=== PATIENT | female | born 1970 | race African-American/Black ===

== ENCOUNTER 2020-04-23 11:14 | Inpatient (IN) | payer OTHER ==
--- NOTE | 2020-04-23 11:31 | BHS.RME ---
Substance Use & Tx History - Substance Use History Alcohol Substance amount: 64 ounces vodka Frequency of use: Daily Substance route: Oral Date of Last Use: 04/23/20 Physical/Psych/Mental Status - Behavior General Behavior: Increased activity (restlessness, agitation) Eye Contact: Normal - Cooperativeness Cooperativeness: Cooperative - Thinking Thought Processes: Tight, Logical, Goal Directed - Physical Health Problems Is patient presently having any pain?: No Does patient presently have any injuries (include location): No Does patient currently have a fever: No Is patient : No CIWA Nausea/Vomitin Muscle Tremors: 4-Moderate,w/Arms Extend Anxiety: 2 Agitation: 2 Paroxysmal Sweats: 1-Minimal Palms Moist Orientation: 0-Oriented Tacttile Disturbances: 2-Mild Itch/Numbness/Burn Auditory Disturbances: 0-None Visual Disturbances: 1-Very Mild Sensitivity Headache: 0-None Present CIWA-Ar Total Score: 14
--- NOTE | 2020-04-23 11:41 | HP ---
CIWA Score Nausea/Vomitin Muscle Tremors: 4-Moderate,w/Arms Extend Anxiety: 2 Agitation: 2 Paroxysmal Sweats: 1-Minimal Palms Moist Orientation: 0-Oriented Tacttile Disturbances: 2-Mild Itch/Numbness/Burn Auditory Disturbances: 0-None Visual Disturbances: 1-Very Mild Sensitivity Headache: 0-None Present CIWA-Ar Total Score: 14 - Admission Criteria OASAS Guidelines: Admission for Medically Managed Detox: Requires at least one of the followin. CIWA greater than 12 2. Seizures within the past 24 hours 3. Delirium tremens within the past 24 hours 4. Hallucinations within the past 24 hours 5. Acute intervention needed for co occurring medical disorder 6. Acute intervention needed for co occurring psychiatric disorder 7. Severe withdrawal that cannot be handled at a lower level of care (continued vomiting, continued diarrhea, abnormal vital signs) requiring intravenous medication and/or fluids 8. Admitting History and Physical - Admission History Source: Patient Limitations to Obtaining History: No Limitations - Past Medical History Pulmonary: Yes: Asthma - Past Surgical History Past Surgical History: Yes: None - Smoking History Smoking history: Current every day smoker Have you smoked in the past 12 months: Yes Aproximately how many cigarettes per day: 20 - Alcohol/Substance Use Hx Alcohol Use: Yes Number of Drinks Daily: 20 History of Substance Use: reports: Cocaine - Social History Usual Living Arrangement: Yes: Other Do you think of yourself as: Straight/Heterosexual ADL: Independent Occupation: unemployed History of Recent Travel: No Admission ROS S - HPI Exam Limitations: No Limitations - Ebola screening Have you traveled outside of the country in the last 21 days: No Have you had contact with anyone from an Ebola affected area: No Have you been sick,other than usual withdrawal symptoms: No Do you have a fever: No - Review of Systems Constitutional: Chills, Diaphoresis EENT: reports: No Symptoms Reported Respiratory: reports: No Symptoms reported Cardiac: reports: No Symptoms Reported GI: reports: No Symptoms Reported : reports: No Symptoms Reported Musculoskeletal: reports: No Symptoms Reported Integumentary: reports: No Symptoms Reported Neuro: reports: No Symptoms reported Endocrine: reports: No Symptoms Reported Hematology: reports: No Symptoms Reported Psychiatric: reports: Judgement Intact, Mood/Affect Appropiate, Orientated x3, Agitated, Anxious Other Systems: Reviewed and Negative Patient History - Patient Medical History Hx Anemia: No Hx Asthma: Yes Hx Chronic Obstructive Pulmonary Disease (COPD): No Hx Cancer: No Hx Cardiac Disorders: No Hx Congestive Heart Failure: No Hx Hypertension: No Hx Hypercholesterolemia: No Hx Pacemaker: No HX Cerebrovascular Accident: No Hx Seizures: No Hx Dementia: No Hx Diabetes: No Hx Gastrointestinal Disorders: No Hx Liver Disease: No Hx Genitourinary Disorders: No Hx Sexually Transmitted Disorders: No Hx Renal Disease (ESRD): No Hx Thyroid Disease: No Hx Human Immunodeficiency Virus (HIV): No Hx Hepatitis C: No Hx Depression: No Hx Suicide Attempt: No Hx Bipolar Disorder: No Hx Schizophrenia: No - Patient Surgical History Past Surgical History: No - PPD History Previous Implant?: Yes Documented Results: Negative w/o proof Implanted On Prior [facility] Admission?: No PPD to be Administered?: Yes - Smoking Cessation Smoking history: Current every day smoker Have you smoked in the past 12 months: Yes Aproximately how many cigarettes per day: 20 Hx Chewing Tobacco Use: No Initiated information on smoking cessation: Yes 'Breaking Loose' booklet given: 04/23/20 - Substances abused Alcohol Substance route: Oral Frequency: Daily Amount used: 3 pints vodka + beers Age of first use: 11 Date of last use: 04/23/20 (3am beers) Cocaine Substance route: Inhalation Frequency: Daily Amount used: 1 gram Age of first use: 11 Date of last use: 04/22/20 Admission Physical Exam [facility] - Physical General Appearance: Yes: Mild Distress, Thin, Tremorous, Irritable, Anxious HEENTM: Yes: EOMI, Hearing grossly Normal, Normal ENT Inspection, Normocephalic, Normal Voice, PARVEEN, Pharynx Normal, Tm's normal Respiratory: Yes: Chest Non-Tender, Lungs Clear, Normal Breath Sounds, No Respiratory Distress, No Accessory Muscle Use Neck: Yes: No masses,lesions,Nodules, Supple, Trachea in good position Breast: Yes: Within Normal Limits Cardiology: Yes: Regular Rhythm, Regular Rate, S1, S2 Abdominal: Yes: Normal Bowel Sounds, Non Tender, Flat, Soft Genitourinary: Yes: Within Normal Limits Back: Yes: Normal Inspection Musculoskeletal: Yes: full range of Motion, Gait Steady, Pelvis Stable Extremities: Yes: Normal Capillary Refill, Normal Inspection, Normal Range of Motion, Non-Tender 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
--- NOTE | 2020-04-23 13:59 | HP ---
CIWA Score Nausea/Vomitin-No Nausea/No Vomiting Muscle Tremors: 3 Anxiety: 6 Agitation: 3 Paroxysmal Sweats: 1-Minimal Palms Moist Orientation: 0-Oriented Tacttile Disturbances: 2-Mild Itch/Numbness/Burn Auditory Disturbances: 0-None Visual Disturbances: 1-Very Mild Sensitivity Headache: 0-None Present CIWA-Ar Total Score: 16 - Admission Criteria OASAS Guidelines: Admission for Medically Managed Detox: Requires at least one of the followin. CIWA greater than 12 2. Seizures within the past 24 hours 3. Delirium tremens within the past 24 hours 4. Hallucinations within the past 24 hours 5. Acute intervention needed for co occurring medical disorder 6. Acute intervention needed for co occurring psychiatric disorder 7. Severe withdrawal that cannot be handled at a lower level of care (continued vomiting, continued diarrhea, abnormal vital signs) requiring intravenous medication and/or fluids 8. Admitting History and Physical - Admission Chief Complaint: " Im here to stop drinking." History of Present Illness: Patient is a 49 y/o F who presents to [facility] for alcohol detox. Patient endorses she consumes 8 glasses of vodka/whiskey daily. Last drink was 5:30 am today. Age of first use 16. Patient states she does require an eye shoe folder and that she has blacked out multiple times in the past from drinking. PMH: Depression (Fluoxetine, Trazadone), HTN, Hearing loss (acoustic schwannoma), osteoarthritis b/l knees Social Hx- Unemployed. Remote history of crack use- January of this year. SurgHx- Gastric Sleeve ([facility]) FH- Father Alcoholism, Leukemia. Mother Healthy. 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 Unclear which type.) Hepatobiliary: No: Cirrhosis, Cholelithiasis, Cholecystitis, Choledocholithiasis, Hepatitis A, Hepatitis B, Hepatitis C, Other Renal/: No: Renal Failure, Renal Inusuff, BPH, Cancer, Hematuria, Hemodialysis, Neurogenic Bladder, Renal Calculi, UTI, Other Reproductive: No: Ectopic , Endometriosis, Fibroids, PID, Polycystic Ovary Syndrome, Postmenopausal, Other Heme/Onc: No: Anemia, B12 Deficiency, Bleeding Disorder, Cancer, Current Chemotherapy, Current Radiation Therapy, Hemochromatosis, Hypercoaguable State, Myeloproliferative Synd, Sickle Cell Disease, Sickle Cell Trait, Thrombocytopenia, Other Infectious Disease: No: AIDS, C-Diff, Herpes Zoster, HIV, MRSA, STD's, Tuberculosis, VREF, Other Psych: Yes: Depression Musculoskeletal: Yes: Osteoarthritis Rheumatology: No: Fibromyalgia, Gout, Lupus, Rheumatoid Arthritis, Sarcoidosis, Vasculitis, Other ENT: No: Allergic Rhinitis, Sinusitis, Other Endocrine: No: Smith's Disease, Manjeet's Disease, Diabetes Insipidus, Diabetes Mellitus, Hyperparathyroidism, Hyperthyroidism, Hypothyroidism, Osteopenia, SIADH, Other - Past Surgical History Past Surgical History: Yes: Bypass, Cataract Removal - Smoking History Have you smoked in the past 12 months: No - Alcohol/Substance Use Hx Alcohol Use: Yes Admission [facility] Allergies/Adverse Reactions: Allergies Allergy/AdvReac Type Severity Reaction Status Date / Time No Known Allergies Allergy Verified 04/23/20 14:07 Exam Limitations: No Limitations - Ebola screening Have you traveled outside of the country in the last 21 days: No Have you had contact with anyone from an Ebola affected area: No Have you been sick,other than usual withdrawal symptoms: No Do you have a fever: No - Review of Systems Constitutional: No Symptoms Reported EENT: reports: Cataracts, Hearing Loss. denies: Blurred Vision, Double Vision, Eye Pain, Ear Pain Respiratory: denies: Cough, Orthopnea, Shortness of Breath, SOB with Exertion, Wheezing, Productive cough, Hemoptysis Cardiac: denies: Chest Pain, Lightheadedness, Palpitations, Chest Tightness GI: denies: Blood Streaked Bowels, Constipated, Diarrhea, Poor Appetite, Rectal Bleeding, Vomiting : denies: Burning, Dysuria, Discharge, Flank Pain, Hematuria Musculoskeletal: denies: Back Pain, Gout, Joint Pain, Muscle Pain, Muscle Weakness Integumentary: denies: Bruising, Change in Color, Change in Hair/Nails, Dryness, Erythema, Flushing Neuro: denies: Headache, Numbness, Paresthesia, Seizure, Tingling, Tremors, Weakness Endocrine: denies: Excessive Sweating, Flushing, Intolerance to Cold, Intolerance to Heat, Increased Hunger Hematology: denies: Anemia, Blood Clots, Easy Bleeding, Easy Bruising Psychiatric: reports: Orientated x3 Patient History - Smoking Cessation Smoking history: Former smoker Have you smoked in the past 12 months: No Initiated information on smoking cessation: No Admission Physical Exam [facility] - Physical General Appearance: Yes: Within Normal Limits, Nourished, Appropriately Dressed HEENTM: Yes: EOMI, Normal ENT Inspection, Normocephalic, Normal Voice Respiratory: Yes: Chest Non-Tender, Lungs Clear, Normal Breath Sounds, No Respiratory Distress Cardiology: Yes: Regular Rhythm, Regular Rate, S1, S2 Abdominal: Yes: Other (Obese). 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, Fully Oriented, Alert, Motor Strength 5/5 Integumentary: Yes: Normal Color, Dry, Warm Lymphatic: Yes: Within Normal Limits - Diagnostic (1) Alcohol abuse Current Visit: Yes Status: Acute (2) Hypertension Current Visit: Yes Status: Acute (3) Depression Current Visit: Yes Status: Chronic (4) Atrial fibrillation Current Visit: Yes Status: Chronic Breathalyzer - Breathalyzer Breathalyzer: 0 Urine Drug Screen - Test Device Lot number: [id number] Expiration date: 05/31/21 - Control Is test valid?: Yes - Results Drug screen NEGATIVE: Yes Inpatient Rehab Admission - Rehab Decision to Admit Inpatient rehab admission?: No
[2020-04-23] MEDS ORDERED: NICOTINE POLACRILEX 2 MG GUM BUC PRN (14:07)
[2020-04-23] MEDS ORDERED: BISMUTH SUBSALICYLATE 262 MG/15 ML BTL PO PRN (14:07)
[2020-04-23] MEDS ORDERED: MAGNESIUM HYDROX 2400MG/30ML ORAL SUSPENSION 30 ML CUP PO PRN (14:07)
[2020-04-23] MEDS ORDERED: MAGNESIUM CITRATE 300 ML BOTTLE PO PRN (14:07)
[2020-04-23] MEDS ORDERED: ACETAMINOPHEN 325 MG TABLET (FP) PO PRN ×2 (14:07)
[2020-04-23] MEDS ORDERED: ONDANSETRON *ODT* 4 MG TABLET SL ONE (14:07)
[2020-04-23] MEDS ORDERED: MENTHOL/PHENOL 1 EACH UD MM PRN (14:07)
[2020-04-23] MEDS ORDERED: PRENATAL VITAMINS W/ FOLIC ACID TABLET (FP) PO SCH (14:15)
[2020-04-23 14:42] VITALS: BMI 46.3
[2020-04-23] MEDS: chlordiazePOXIDE HCL 25 MG CAPSULE PO SCH ×2 (16:53→22:17)
[2020-04-23] MEDS: NICOTINE 7 MG/24 HOURS TOPICAL PATCH TD SCH (16:53)
[2020-04-23 17:09] LABS: HEMATOCRIT 39.4 % (32.4-45.2); MCH 29.4 pg (25.7-33.7); MCHC 32.9 g/dl (32.0-36.0); MEAN CELL VOLUME 89.4 fl (80-96); MEAN PLT VOLUME 10.9 fl (7.5-11.1); PLATELET COUNT 144 K/MM3 (134-434); RBC 4.41 M/mm3 (3.60-5.2); RDW 16.3 % (11.6-15.6); WHITE BLOOD COUNT 6.4 K/mm3 (4.0-10.0)
[2020-04-23] MEDS: IBUPROFEN 400 MG TABLET (FP) PO PRN (17:40)
[2020-04-23 17:42] LABS: ALBUMIN 3.6 g/dl (3.4-5.0); BILIRUBIN,TOTAL 0.9 mg/dL (0.2-1); CALCIUM 9.2 mg/dL (8.5-10.1); CREATININE 0.9 mg/dL (0.55-1.3); POTASSIUM 3.9 mmol/L (3.5-5.1); TOT PROT 7.3 g/dl (6.4-8.2)
[2020-04-23] MEDS ORDERED: hydrOXYzine PAMOATE 25 MG CAPSULE (FP) PO SCH (18:00)
[2020-04-23] MEDS: THIAMINE HCL 100 MG TABLET (FP) PO SCH (22:16)
[2020-04-23] MEDS: METOPROLOL TARTRATE 25 MG TABLET (FP) PO SCH (22:17)
[2020-04-23] MEDS: MELATONIN 5 MG TABLETS PO SCH (22:18)
[2020-04-24] MEDS: METHOCARBAMOL 500 MG TABLET PO PRN ×2 (05:59→13:35)
[2020-04-24] MEDS: chlordiazePOXIDE HCL 25 MG CAPSULE PO SCH ×4 (05:59→22:14)
[2020-04-24] MEDS: IBUPROFEN 400 MG TABLET (FP) PO PRN (06:00)
[2020-04-24] MEDS: NICOTINE 7 MG/24 HOURS TOPICAL PATCH TD SCH (10:43)
[2020-04-24] MEDS: METOPROLOL TARTRATE 25 MG TABLET (FP) PO SCH ×2 (10:43→22:14)
[2020-04-24] MEDS: MULTIVITAMINS (DAILY MVI) TABLET (FP) PO SCH (10:44)
[2020-04-24] MEDS ORDERED: PNEUMOC 13-VAL CONJ-DIP CRM/PF 0.5 ML DISP.SYRIN IM ONE (12:00)
[2020-04-24] MEDS ORDERED: PNEUMOCOCCAL 23 VACCINE 0.5 ML VIAL IM ONE (12:00)
[2020-04-24] MEDS ORDERED: ONDANSETRON *ODT* 4 MG TABLET SL PRN (12:42)
[2020-04-24] MEDS: chlordiazePOXIDE HCL 25 MG CAPSULE PO PRN (13:35)
--- NOTE | 2020-04-24 15:16 | PN ---
S Progress Note Note: Psychiatry Attending's note : Bedside visit for psychiatric interview. Patient is found asleep. No distress noted. Examination deferred until patient awake.
--- NOTE | 2020-04-24 16:31 | PN ---
[facility] CIWA - CIWA Score Nausea/Vomitin (and Diarrhea.) Muscle Tremors: None Anxiety: 3 Agitation: 2 Paroxysmal Sweats: No Perspiration Orientation: 0-Oriented Tacttile Disturbances: 0-None Auditory Disturbances: 1-Very Mild Visual Disturbances: 2-Mild Sensitivity Headache: 0-None Present CIWA-Ar Total Score: 11 [facility] Progress Note (SOAP) Subjective: Nausea, Diarrhea, Anxious, Fatigue. Objective: Patient A & O X 3, Observed Ambulating on Detox Unit Unassisted. In No Acute Distress. 04/24/20 16:28 Vital Signs Temperature 96.9 F L 04/24/20 14:12 Pulse Rate 89 04/24/20 14:12 Respiratory Rate 18 04/24/20 14:12 Blood Pressure 134/68 04/24/20 14:12 O2 Sat by Pulse Oximetry (%) 96 04/24/20 14:12 Laboratory Tests 04/23/20 04/23/20 04/23/20 14:15 14:15 14:15 WBC 6.4 RBC 4.41 Hgb 13.0 Hct 39.4 MCV 89.4 MCH 29.4 MCHC 32.9 RDW 16.3 H Plt Count 144 MPV 10.9 Sodium 138 Potassium 3.9 Chloride 98 Carbon Dioxide 33 H Anion Gap 8 BUN 9.0 Creatinine 0.9 Est GFR (CKD-EPI)AfAm 85.80 Est GFR (CKD-EPI)NonAf 74.03 Random Glucose 106 Hemoglobin A1c % Calcium 9.2 Total Bilirubin 0.9 AST 61 H ALT 53 Alkaline Phosphatase 121 H Total Protein 7.3 Albumin 3.6 Syphilis Serology Non-reactive HIV Ag/Ab Combo Qual 04/23/20 04/24/20 14:15 06:05 WBC RBC Hgb Hct MCV MCH MCHC RDW Plt Count MPV Sodium Potassium Chloride Carbon Dioxide Anion Gap BUN Creatinine Est GFR (CKD-EPI)AfAm Est GFR (CKD-EPI)NonAf Random Glucose Hemoglobin A1c % 4.8 Calcium Total Bilirubin AST ALT Alkaline Phosphatase Total Protein Albumin Syphilis Serology HIV Ag/Ab Combo Qual Negative Lab Results noted. Assessment: 04/24/20 16:29 WITHDRAWAL SYMPTOMS. ELEVATED AST LEVEL. Plan: Continue Detox. Increase Daily Oral Water Intake. PRN Zofran SL for nausea. PRN Pepto-Bismol for Diarrhea.
--- NOTE | 2020-04-24 18:06 | PN ---
S Progress Note Note: Psychiatry Attending's note : Three visits at bedside. Different times. Patient asleep. Nursing staff made aware. Liaison-Psychiatry will follow.
[2020-04-24] MEDS: THIAMINE HCL 100 MG TABLET (FP) PO SCH (22:14)
[2020-04-24] MEDS: MELATONIN 5 MG TABLETS PO SCH (22:14)
[2020-04-25] MEDS: chlordiazePOXIDE HCL 25 MG CAPSULE PO SCH ×4 (06:23→22:16)
[2020-04-25] MEDS: METOPROLOL TARTRATE 25 MG TABLET (FP) PO SCH ×2 (10:23→22:15)
[2020-04-25] MEDS: MULTIVITAMINS (DAILY MVI) TABLET (FP) PO SCH (10:23)
[2020-04-25] MEDS: NICOTINE 7 MG/24 HOURS TOPICAL PATCH TD SCH (10:24)
[2020-04-25] MEDS: METHOCARBAMOL 500 MG TABLET PO PRN ×2 (10:27→22:16)
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
[2020-04-25] MEDS: FLUoxetine HCL 20 MG CAPSULE PO SCH (12:28)
--- NOTE | 2020-04-25 13:45 | PN ---
S CIWA - CIWA Score Nausea/Vomitin-Mild Nausea/No Vomiting Muscle Tremors: 2 Anxiety: 1-Mildly Anxious Agitation: 1-Slight > Activity Paroxysmal Sweats: 1-Minimal Palms Moist Orientation: 0-Oriented Tacttile Disturbances: 0-None Auditory Disturbances: 0-None Visual Disturbances: 2-Mild Sensitivity Headache: 1-Very Mild CIWA-Ar Total Score: 9 [facility] Progress Note (SOAP) Subjective: 49 years old female admitted on 04/23/20 for alcohol withdrawal sx management treating with librium detox regiment ate breakfast and lunch in room ambulating with cane slow steady social with peers in day room discussing aftercare with staff ms pereira prefers to go to [facility] for alcohol recovery Objective: 04/25/20 13:51 Vital Signs - 24 hr 04/24/20 04/24/20 04/24/20 14:12 17:51 21:00 Temperature 96.9 F L 98.0 F 97.3 F L Pulse Rate 89 91 H 80 Respiratory 18 18 18 Rate Blood Pressure 134/68 101/67 105/64 O2 Sat by Pulse 96 95 Oximetry (%) 04/25/20 04/25/20 04/25/20 07:02 08:37 12:18 Temperature 96.9 F L 96.9 F L 96.9 F L Pulse Rate 81 91 H 96 H Respiratory 20 18 18 Rate Blood Pressure 105/69 105/73 116/70 O2 Sat by Pulse 97 97 Oximetry (%) Laboratory Tests 04/23/20 04/23/20 04/23/20 14:15 14:15 14:15 WBC 6.4 RBC 4.41 Hgb 13.0 Hct 39.4 MCV 89.4 MCH 29.4 MCHC 32.9 RDW 16.3 H Plt Count 144 MPV 10.9 Sodium 138 Potassium 3.9 Chloride 98 Carbon Dioxide 33 H Anion Gap 8 BUN 9.0 Creatinine 0.9 Est GFR (CKD-EPI)AfAm 85.80 Est GFR (CKD-EPI)NonAf 74.03 Random Glucose 106 Hemoglobin A1c % Calcium 9.2 Total Bilirubin 0.9 AST 61 H ALT 53 Alkaline Phosphatase 121 H Total Protein 7.3 Albumin 3.6 Syphilis Serology Non-reactive HIV Ag/Ab Combo Qual 04/23/20 04/24/20 14:15 06:05 WBC RBC Hgb Hct MCV MCH MCHC RDW Plt Count MPV Sodium Potassium Chloride Carbon Dioxide Anion Gap BUN Creatinine Est GFR (CKD-EPI)AfAm Est GFR (CKD-EPI)NonAf Random Glucose Hemoglobin A1c % 4.8 Calcium Total Bilirubin AST ALT Alkaline Phosphatase Total Protein Albumin Syphilis Serology HIV Ag/Ab Combo Qual Negative lab noted Assessment: 04/25/20 13:52 alcohol withdrawal Plan: librium regiment
--- NOTE | 2020-04-25 17:15 | EKG ---
Test Reason : Blood Pressure : / mmHG Vent. Rate : 074 BPM Atrial Rate : 074 BPM P-R Int : 160 ms QRS Dur : 096 ms QT Int : 460 ms P-R-T Axes : 046 024 023 degrees QTc Int : 510 ms NORMAL SINUS RHYTHM POSSIBLE LEFT ATRIAL ENLARGEMENT NONSPECIFIC ST ABNORMALITY PROLONGED QT ABNORMAL ECG NO PREVIOUS ECGS AVAILABLE Confirmed by MD Rodriguez Edward ([id number]) on 04/25/2020 5:14:25 PM Referred By: Confirmed By:Humberto Rodriguez MD
[2020-04-25] MEDS: chlordiazePOXIDE HCL 25 MG CAPSULE PO PRN (18:02)
[2020-04-25] MEDS: MELATONIN 5 MG TABLETS PO SCH (22:15)
[2020-04-25] MEDS: THIAMINE HCL 100 MG TABLET (FP) PO SCH (22:15)
[2020-04-25] MEDS: traZODone HCL 50 MG TABLET (FP) PO SCH (22:16)
[2020-04-26] MEDS ORDERED: chlordiazePOXIDE HCL 10 MG CAPSULE PO PRN
[2020-04-26] MEDS: chlordiazePOXIDE HCL 10 MG CAPSULE PO SCH ×4 (06:02→22:10)
--- NOTE | 2020-04-26 09:01 | PN ---
S CIWA - CIWA Score Nausea/Vomitin-No Nausea/No Vomiting Muscle Tremors: 2 Anxiety: 3 Agitation: 1-Slight > Activity Paroxysmal Sweats: No Perspiration Orientation: 0-Oriented Tacttile Disturbances: 0-None Auditory Disturbances: 0-None Visual Disturbances: 1-Very Mild Sensitivity Headache: 0-None Present CIWA-Ar Total Score: 7 S Progress Note (SOAP) Subjective: 49 years old grossly obese female admitted on 04/23/20 for alcohol withdrawal sx management treating with librium detox regiment ate breakfast tolerated food well ambulating with four points cane slow steady from bed to bathroom alert oriented x 3 speech clearly loose stool x 1 after breakfast imodium 4 mg po x 1 Objective: 04/26/20 09:00 Vital Signs - 24 hr 04/25/20 04/25/20 04/25/20 12:18 16:58 20:49 Temperature 96.9 F L 97.5 F L 96.8 F L Pulse Rate 96 H 79 79 Respiratory 18 18 16 Rate Blood Pressure 116/70 125/78 O2 Sat by Pulse 97 96 Oximetry (%) 04/26/20 06:35 Temperature 97.1 F L Pulse Rate 77 Respiratory 18 Rate Blood Pressure 103/65 O2 Sat by Pulse 96 Oximetry (%) Laboratory Tests 04/23/20 04/23/20 04/23/20 14:15 14:15 14:15 WBC 6.4 RBC 4.41 Hgb 13.0 Hct 39.4 MCV 89.4 MCH 29.4 MCHC 32.9 RDW 16.3 H Plt Count 144 MPV 10.9 Sodium 138 Potassium 3.9 Chloride 98 Carbon Dioxide 33 H Anion Gap 8 BUN 9.0 Creatinine 0.9 Est GFR (CKD-EPI)AfAm 85.80 Est GFR (CKD-EPI)NonAf 74.03 Random Glucose 106 Hemoglobin A1c % Calcium 9.2 Total Bilirubin 0.9 AST 61 H ALT 53 Alkaline Phosphatase 121 H Total Protein 7.3 Albumin 3.6 Syphilis Serology Non-reactive HIV Ag/Ab Combo Qual 04/23/20 04/24/20 14:15 06:05 WBC RBC Hgb Hct MCV MCH MCHC RDW Plt Count MPV Sodium Potassium Chloride Carbon Dioxide Anion Gap BUN Creatinine Est GFR (CKD-EPI)AfAm Est GFR (CKD-EPI)NonAf Random Glucose Hemoglobin A1c % 4.8 Calcium Total Bilirubin AST ALT Alkaline Phosphatase Total Protein Albumin Syphilis Serology HIV Ag/Ab Combo Qual Negative lab noted 04/26/20 09:01 covid pending Assessment: 04/26/20 09:01 alcohol withdrawal Plan: librium regiment seen by psychiatrist resume prozac and trazodone
[2020-04-26] MEDS ORDERED: LOPERAMIDE HCL 2 MG CAPSULE PO ONE (09:02)
[2020-04-26] MEDS: MULTIVITAMINS (DAILY MVI) TABLET (FP) PO SCH (10:21)
[2020-04-26] MEDS: METOPROLOL TARTRATE 25 MG TABLET (FP) PO SCH ×2 (10:21→22:11)
[2020-04-26] MEDS: FLUoxetine HCL 20 MG CAPSULE PO SCH (10:21)
[2020-04-26] MEDS: NICOTINE 7 MG/24 HOURS TOPICAL PATCH TD SCH (10:22)
[2020-04-26] MEDS: MAG HYDROX/AL HYDROX/SIMETH 30 ML UNIT-DOSE CUP PO PRN ×2 (11:32→17:25)
[2020-04-26] MEDS: traZODone HCL 50 MG TABLET (FP) PO SCH (22:10)
[2020-04-26] MEDS: THIAMINE HCL 100 MG TABLET (FP) PO SCH (22:10)
[2020-04-26] MEDS: MELATONIN 5 MG TABLETS PO SCH (22:11)
[2020-04-27] MEDS: chlordiazePOXIDE HCL 10 MG CAPSULE PO SCH ×2 (06:09→17:33)
--- NOTE | 2020-04-27 09:47 | PN ---
S CIWA - CIWA Score Nausea/Vomitin-No Nausea/No Vomiting Muscle Tremors: 1-None Visible, but [place] Anxiety: 1-Mildly Anxious Agitation: 0-Normal Activity Paroxysmal Sweats: 1-Minimal Palms Moist Orientation: 0-Oriented Tacttile Disturbances: 0-None Auditory Disturbances: 0-None Visual Disturbances: 1-Very Mild Sensitivity Headache: 0-None Present CIWA-Ar Total Score: 4 BHS Progress Note (SOAP) Subjective: 49 years old female admitted on 04/23/20 for alcohol withdrawal sx management treating with librium detox regiment ambulating with cane slow steady from bed to bathroom feeling better today discussing aftercare with staff encourage [facility] [place] [facility] Objective: 04/27/20 09:47 Vital Signs - 24 hr 04/26/20 04/26/20 04/26/20 12:43 16:40 20:54 Temperature 96.6 F L 96.9 F L 97.3 F L Pulse Rate 89 73 72 Respiratory 20 18 16 Rate Blood Pressure 125/84 124/84 113/81 O2 Sat by Pulse 97 97 97 Oximetry (%) 04/27/20 04/27/20 06:46 08:35 Temperature 97.7 F 98.4 F Pulse Rate 69 65 Respiratory 20 18 Rate Blood Pressure 123/83 126/82 O2 Sat by Pulse 99 99 Oximetry (%) Laboratory Tests 04/23/20 04/23/20 04/23/20 13:26 14:15 14:15 WBC 6.4 RBC 4.41 Hgb 13.0 Hct 39.4 MCV 89.4 MCH 29.4 MCHC 32.9 RDW 16.3 H Plt Count 144 MPV 10.9 Sodium 138 Potassium 3.9 Chloride 98 Carbon Dioxide 33 H Anion Gap 8 BUN 9.0 Creatinine 0.9 Est GFR (CKD-EPI)AfAm 85.80 Est GFR (CKD-EPI)NonAf 74.03 Random Glucose 106 Hemoglobin A1c % Calcium 9.2 Total Bilirubin 0.9 AST 61 H ALT 53 Alkaline Phosphatase 121 H Total Protein 7.3 Albumin 3.6 POC Urine HCG, Qual Negative Syphilis Serology COVID-19 (JM) HIV Ag/Ab Combo Qual 04/23/20 04/23/20 04/23/20 14:15 14:15 15:20 WBC RBC Hgb Hct MCV MCH MCHC RDW Plt Count MPV Sodium Potassium Chloride Carbon Dioxide Anion Gap BUN Creatinine Est GFR (CKD-EPI)AfAm Est GFR (CKD-EPI)NonAf Random Glucose Hemoglobin A1c % 4.8 Calcium Total Bilirubin AST ALT Alkaline Phosphatase Total Protein Albumin POC Urine HCG, Qual Syphilis Serology Non-reactive COVID-19 (JM) Not detected HIV Ag/Ab Combo Qual 04/24/20 06:05 WBC RBC Hgb Hct MCV MCH MCHC RDW Plt Count MPV Sodium Potassium Chloride Carbon Dioxide Anion Gap BUN Creatinine Est GFR (CKD-EPI)AfAm Est GFR (CKD-EPI)NonAf Random Glucose Hemoglobin A1c % Calcium Total Bilirubin AST ALT Alkaline Phosphatase Total Protein Albumin POC Urine HCG, Qual Syphilis Serology COVID-19 (JM) HIV Ag/Ab Combo Qual Negative encourage weight loss Assessment: 04/27/20 09:48 alcohol withdrawal Plan: librium regiment
[2020-04-27] MEDS: METOPROLOL TARTRATE 25 MG TABLET (FP) PO SCH ×2 (10:06→22:49)
[2020-04-27] MEDS: MULTIVITAMINS (DAILY MVI) TABLET (FP) PO SCH (10:06)
[2020-04-27] MEDS: FLUoxetine HCL 20 MG CAPSULE PO SCH (10:06)
[2020-04-27] MEDS: NICOTINE 7 MG/24 HOURS TOPICAL PATCH TD SCH (10:07)
[2020-04-27] MEDS: MAG HYDROX/AL HYDROX/SIMETH 30 ML UNIT-DOSE CUP PO PRN (10:08)
[2020-04-27 21:50] VITALS: TEMP 97.1
[2020-04-27] MEDS: traZODone HCL 50 MG TABLET (FP) PO SCH (22:46)
[2020-04-27] MEDS: THIAMINE HCL 100 MG TABLET (FP) PO SCH (22:46)
[2020-04-27] MEDS: MELATONIN 5 MG TABLETS PO SCH (22:51)
[2020-04-28] MEDS ORDERED: chlordiazePOXIDE HCL 10 MG CAPSULE PO ONE (05:00)
[2020-04-28 09:09] VITALS: BP 128/88; PULSE 71
[2020-04-28] MEDS: FLUoxetine HCL 20 MG CAPSULE PO SCH (10:25)
[2020-04-28] MEDS: MULTIVITAMINS (DAILY MVI) TABLET (FP) PO SCH (10:25)
[2020-04-28] MEDS: METOPROLOL TARTRATE 25 MG TABLET (FP) PO SCH (10:25)
[2020-04-28] MEDS: NICOTINE 7 MG/24 HOURS TOPICAL PATCH TD SCH (10:26)
--- NOTE | 2020-04-28 11:12 | DS ---
[facility] Detox Discharge Summary Admission Date: 04/23/20 Discharge Date: 04/28/20 - History Present History: Alcohol Dependence Additional Comments: 49 years old female admitted on 04/23/20 for alcohol withdrawal sx management treated with librium detox regiment seen by psychiatrist cole dwyer ms kelli has completed the librium regiment and is tolerated well alert oriented x 3 speech clearly coherently ambulating with cane slow steady gaits respiratory clear lung sounds bilaterally on auscultation abdomen soft round obese no rebound tenderness skin warm and dry Pertinent Past History: time for discharge 40 minutes transferred order sent from detox to rehab - Physical Exam Results Vital Signs: Vital Signs Temperature 97.1 F L 04/28/20 08:51 Pulse Rate 71 04/28/20 08:51 Respiratory Rate 18 04/28/20 08:51 Blood Pressure 128/88 04/28/20 08:51 O2 Sat by Pulse Oximetry (%) 96 04/28/20 05:58 Pertinent Admission Physical Exam Findings: alcohol withdrawal Laboratory Tests 04/23/20 04/23/20 04/23/20 13:26 14:15 14:15 WBC 6.4 RBC 4.41 Hgb 13.0 Hct 39.4 MCV 89.4 MCH 29.4 MCHC 32.9 RDW 16.3 H Plt Count 144 MPV 10.9 Sodium 138 Potassium 3.9 Chloride 98 Carbon Dioxide 33 H Anion Gap 8 BUN 9.0 Creatinine 0.9 Est GFR (CKD-EPI)AfAm 85.80 Est GFR (CKD-EPI)NonAf 74.03 Random Glucose 106 Hemoglobin A1c % Calcium 9.2 Total Bilirubin 0.9 AST 61 H ALT 53 Alkaline Phosphatase 121 H Total Protein 7.3 Albumin 3.6 POC Urine HCG, Qual Negative Syphilis Serology COVID-19 (JM) HIV Ag/Ab Combo Qual 04/23/20 04/23/20 04/23/20 14:15 14:15 15:20 WBC RBC Hgb Hct MCV MCH MCHC RDW Plt Count MPV Sodium Potassium Chloride Carbon Dioxide Anion Gap BUN Creatinine Est GFR (CKD-EPI)AfAm Est GFR (CKD-EPI)NonAf Random Glucose Hemoglobin A1c % 4.8 Calcium Total Bilirubin AST ALT Alkaline Phosphatase Total Protein Albumin POC Urine HCG, Qual Syphilis Serology Non-reactive COVID-19 (JM) Not detected HIV Ag/Ab Combo Qual 04/24/20 06:05 WBC RBC Hgb Hct MCV MCH MCHC RDW Plt Count MPV Sodium Potassium Chloride Carbon Dioxide Anion Gap BUN Creatinine Est GFR (CKD-EPI)AfAm Est GFR (CKD-EPI)NonAf Random Glucose Hemoglobin A1c % Calcium Total Bilirubin AST ALT Alkaline Phosphatase Total Protein Albumin POC Urine HCG, Qual Syphilis Serology COVID-19 (JM) HIV Ag/Ab Combo Qual Negative lab noted - Treatment Hospital Course: Detox Protocol Followed, Detoxed Safely, Responded well, Discharged Condition Good, Rehab Referral Accepted Patient has Accepted a Re[facility] Referral to: [facility] - Medication Discharge Medications: Ambulatory Orders Calcium Carbonate/Vitamin D3 [Calcium 500-Vit D3 400 Tablet] 1 tab PO DAILY 04/23/20 Cyanocobalamin [Vitamin B12 -] 500 mcg PO DAILY 04/23/20 Fluoxetine HCl [Prozac] 40 mg PO DAILY 04/23/20 Gabapentin 300 mg PO TID 04/23/20 Iron Polysaccharide Complex [Ferric X-150] 150 mg PO DAILY 04/23/20 Metoprolol Tartrate 25 mg PO BID 04/23/20 Multivitamins [Multivit ([facility] Formulary)] 1 tab PO DAILY 04/23/20 traZODone HCL [Trazodone HCl] 50 mg PO HS 04/23/20 - Diagnosis (1) Substance induced mood disorder Current Visit: Yes Status: Suspected (2) Alcohol dependence, uncomplicated Current Visit: Yes Status: Acute (3) Hypertension Current Visit: Yes Status: Chronic Qualifiers: Hypertension type: essential hypertension Qualified Code(s): I10 - Essential (primary) hypertension - AMA Did Patient Leave Against Medical Advice: No CIWA Score - CIWA Score Nausea/Vomitin-No Nausea/No Vomiting Muscle Tremors: 1-None Visible, but [place] Anxiety: 1-Mildly Anxious Agitation: 0-Normal Activity Paroxysmal Sweats: No Perspiration Orientation: 0-Oriented Tacttile Disturbances: 0-None Auditory Disturbances: 0-None Visual Disturbances: 0-None Headache: 0-None Present CIWA-Ar Total Score: 2
== END 2020-04-28 11:35 | disposition other institution (70) | DRG 774 ==
LOC: YASAS 11:14 → Y3N 15:13
PROVIDERS: ADMIT Allergy & Immunology; ATTEND Allergy & Immunology
PROC: HZ2ZZZZ Detoxification Services for Substance Abuse Treatment (ICD-10-PCS; principal; 2020-04-23)
DX: F10.230 Alcohol dependence with withdrawal, uncomplicated (principal); F14.21 Cocaine dependence, in remission; F10.24 Alcohol dependence with alcohol-induced mood disorder; F10.282 Alcohol dependence with alcohol-induced sleep disorder; F19.24 Other psychoactive substance dependence with psychoactive substance-induced mood disorder; F41.9 Anxiety disorder, unspecified; F32.9 Major depressive disorder, single episode, unspecified; I10 Essential (primary) hypertension; I48.91 Unspecified atrial fibrillation; H91.93 Unspecified hearing loss, bilateral; D33.3 Benign neoplasm of cranial nerves; M17.0 Bilateral primary osteoarthritis of knee; Z99.89 Dependence on other enabling machines and devices; Z98.84 Bariatric surgery status; Z56.0 Unemployment, unspecified
CPT/HCPCS: 36415; 80053; 81025; 83036; 85027; 86780; 87389; 90732; 93005; 93010; G0009; Q0162; U0003

== ENCOUNTER 2020-04-28 11:55 | Inpatient (IN) | payer OTHER ==
--- NOTE | 2020-04-28 11:13 | HP ---
[facility] Rehab Assess/Revision - Admission History Admitted to Rehab from: [facility] [place] Date of Admission to Rehab: 04/28/20 - Findings Detox History & Physical reviewed: Yes Concur with findings: Yes Comments/Additional Findings: trasnferred from detox to rehab admission as per protocol Inpatient Rehab Admission - Rehab Decision to Admit Inpatient rehab admission?: Yes - Initial Determination Are CD services needed?: Yes Free of communicable disease: Yes Not in need of hospitalization: Yes - Rehab Admission Criteria Previous failed treatment: Yes Poor recovery environment: Yes Comorbidities: Yes Lacks judgement: Yes Patient is meeting Inpatient Rehab admission criteria:: Yes
[~2020-04-28 11:55] MED LIST: IBUPROFEN 400 MG TABLET (FP) PO PRN; LOPERAMIDE HCL 2 MG CAPSULE PO PRN; MAGNESIUM CITRATE 300 ML BOTTLE PO PRN; MAGNESIUM HYDROX 2400MG/30ML ORAL SUSPENSION 30 ML CUP PO PRN; NICOTINE POLACRILEX 2 MG GUM BUC PRN; P-EPHED 60MG/TRIPROLIDI 2.5MG TABLET PO PRN; guaiFENesin 200 MG/10 ML 10 ML UNIT-DOSE CUPS PO PRN; hydrOXYzine PAMOATE 25 MG CAPSULE (FP) PO PRN
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
[2020-04-28] MEDS: THIAMINE HCL 100 MG TABLET (FP) PO SCH (21:23)
[2020-04-28] MEDS: MELATONIN 5 MG TABLETS PO SCH (21:23)
[2020-04-28] MEDS: traZODone HCL 50 MG TABLET (FP) PO SCH (21:24)
--- NOTE | 2020-04-29 09:26 | PN ---
[facility] Progress Note Note: patient admitted to rehab, [address] [facility]. Stable, no complaints or urgent medical problems at this time. Labs, problem list, admission note reviewed. Vital Signs Period Temp Pulse Resp BP Sys/Braxton Pulse Ox Last 24 Hr 97.5 F-97.9 F 69-87 18-18 122-144/73-93 95-98
[2020-04-29] MEDS: NICOTINE 7 MG/24 HOURS TOPICAL PATCH TD SCH (09:35)
[2020-04-29] MEDS: FLUoxetine HCL 20 MG CAPSULE PO SCH (09:36)
[2020-04-29] MEDS: PRENATAL VITAMINS W/ FOLIC ACID TABLET (FP) PO SCH (09:36)
[2020-04-29] MEDS: MAG HYDROX/AL HYDROX/SIMETH 30 ML UNIT-DOSE CUP PO PRN (09:37)
[2020-04-29] MEDS: ACETAMINOPHEN 325 MG TABLET (FP) PO PRN (09:37)
[2020-04-29] MEDS: PANTOPRAZOLE 40 MG TABLET PO SCH (10:11)
--- NOTE | 2020-04-29 11:32 | EKG ---
Test Reason : Blood Pressure : / mmHG Vent. Rate : 085 BPM Atrial Rate : 085 BPM P-R Int : 168 ms QRS Dur : 094 ms QT Int : 424 ms P-R-T Axes : 049 031 031 degrees QTc Int : 504 ms NORMAL SINUS RHYTHM POSSIBLE LEFT ATRIAL ENLARGEMENT INCOMPLETE RIGHT BUNDLE BRANCH BLOCK PROLONGED QT ABNORMAL ECG WHEN COMPARED WITH ECG OF 23-APR-2020 14:26, NO SIGNIFICANT CHANGE WAS FOUND Confirmed by BRITTANY SHANKS, ORQUIDEA ([id number]) on 04/29/2020 11:31:56 AM Referred By: JEFF SÁNCHEZ Confirmed By:ORQUIDEA SOTO MD
[2020-04-29] MEDS: MELATONIN 5 MG TABLETS PO SCH (21:06)
[2020-04-29] MEDS: traZODone HCL 50 MG TABLET (FP) PO SCH (21:06)
[2020-04-29] MEDS: THIAMINE HCL 100 MG TABLET (FP) PO SCH (21:06)
[2020-04-30] MEDS: PRENATAL VITAMINS W/ FOLIC ACID TABLET (FP) PO SCH (10:34)
[2020-04-30] MEDS: FLUoxetine HCL 20 MG CAPSULE PO SCH (10:34)
[2020-04-30] MEDS: PANTOPRAZOLE 40 MG TABLET PO SCH (10:34)
[2020-04-30] MEDS: ACETAMINOPHEN 325 MG TABLET (FP) PO PRN (10:35)
[2020-04-30] MEDS: NICOTINE 7 MG/24 HOURS TOPICAL PATCH TD SCH (10:38)
--- NOTE | 2020-04-30 14:39 | PN ---
S Progress Note Note: Laboratory Tests 04/30/20 10:49 POC Glucometer 93 Vital Signs Temperature 98.0 F 04/30/20 06:52 Pulse Rate 97 H 04/30/20 06:52 Respiratory Rate 18 04/30/20 06:52 Blood Pressure 118/84 04/30/20 06:52 O2 Sat by Pulse Oximetry (%) 96 04/30/20 13:44 Patient's lab results reviewed and given to patient. Lipid profile ordered due to hx of HTN.
[2020-04-30] MEDS: traZODone HCL 50 MG TABLET (FP) PO SCH (21:04)
[2020-04-30] MEDS: MELATONIN 5 MG TABLETS PO SCH (21:04)
[2020-04-30] MEDS: THIAMINE HCL 100 MG TABLET (FP) PO SCH (21:04)
[2020-05-01] MEDS: FLUoxetine HCL 20 MG CAPSULE PO SCH (09:40)
[2020-05-01] MEDS: PRENATAL VITAMINS W/ FOLIC ACID TABLET (FP) PO SCH (09:40)
[2020-05-01] MEDS: PANTOPRAZOLE 40 MG TABLET PO SCH (09:40)
[2020-05-01] MEDS: NICOTINE 7 MG/24 HOURS TOPICAL PATCH TD SCH (09:40)
[2020-05-01] MEDS: MAG HYDROX/AL HYDROX/SIMETH 30 ML UNIT-DOSE CUP PO PRN (13:02)
[2020-05-01] MEDS: traZODone HCL 50 MG TABLET (FP) PO SCH (21:07)
[2020-05-01] MEDS: THIAMINE HCL 100 MG TABLET (FP) PO SCH (21:07)
[2020-05-01] MEDS: MELATONIN 5 MG TABLETS PO SCH (21:07)
[2020-05-02] MEDS: NICOTINE 7 MG/24 HOURS TOPICAL PATCH TD SCH (09:49)
[2020-05-02] MEDS: FLUoxetine HCL 20 MG CAPSULE PO SCH (09:49)
[2020-05-02] MEDS: PANTOPRAZOLE 40 MG TABLET PO SCH (09:49)
[2020-05-02] MEDS: PRENATAL VITAMINS W/ FOLIC ACID TABLET (FP) PO SCH (09:49)
[2020-05-02] MEDS: ACETAMINOPHEN 325 MG TABLET (FP) PO PRN (09:50)
[2020-05-02] MEDS: traZODone HCL 50 MG TABLET (FP) PO SCH (21:22)
[2020-05-02] MEDS: THIAMINE HCL 100 MG TABLET (FP) PO SCH (21:22)
[2020-05-02] MEDS: MELATONIN 5 MG TABLETS PO SCH (21:22)
[2020-05-03] MEDS: PRENATAL VITAMINS W/ FOLIC ACID TABLET (FP) PO SCH (09:45)
[2020-05-03] MEDS: FLUoxetine HCL 20 MG CAPSULE PO SCH (09:45)
[2020-05-03] MEDS: PANTOPRAZOLE 40 MG TABLET PO SCH (09:45)
[2020-05-03] MEDS: NICOTINE 7 MG/24 HOURS TOPICAL PATCH TD SCH (09:46)
[2020-05-03] MEDS: MAG HYDROX/AL HYDROX/SIMETH 30 ML UNIT-DOSE CUP PO PRN (13:57)
[2020-05-03] MEDS: MELATONIN 5 MG TABLETS PO SCH (21:09)
[2020-05-03] MEDS: traZODone HCL 50 MG TABLET (FP) PO SCH (21:09)
[2020-05-03] MEDS: THIAMINE HCL 100 MG TABLET (FP) PO SCH (21:10)
[2020-05-04] MEDS: PRENATAL VITAMINS W/ FOLIC ACID TABLET (FP) PO SCH (09:53)
[2020-05-04] MEDS: MAG HYDROX/AL HYDROX/SIMETH 30 ML UNIT-DOSE CUP PO PRN (09:53)
[2020-05-04] MEDS: PANTOPRAZOLE 40 MG TABLET PO SCH (09:53)
[2020-05-04] MEDS: FLUoxetine HCL 20 MG CAPSULE PO SCH (09:53)
[2020-05-04] MEDS: NICOTINE 7 MG/24 HOURS TOPICAL PATCH TD SCH (09:54)
[2020-05-04] MEDS: traZODone HCL 50 MG TABLET (FP) PO SCH (21:24)
[2020-05-04] MEDS: MELATONIN 5 MG TABLETS PO SCH (21:24)
[2020-05-04] MEDS: THIAMINE HCL 100 MG TABLET (FP) PO SCH (21:24)
[2020-05-05] MEDS: NICOTINE 7 MG/24 HOURS TOPICAL PATCH TD SCH (09:56)
[2020-05-05] MEDS: FLUoxetine HCL 20 MG CAPSULE PO SCH (09:57)
[2020-05-05] MEDS: PANTOPRAZOLE 40 MG TABLET PO SCH (09:57)
[2020-05-05] MEDS: PRENATAL VITAMINS W/ FOLIC ACID TABLET (FP) PO SCH (09:57)
[2020-05-05 12:02] LABS: CHOLESTEROL 246 mg/dL (50-200); LDL CHOLESTEROL (ONLY SJRH) 114 mg/dL (5-100); TRIGLYCERIDES 76 mg/dL (0-150)
[2020-05-05 12:04] LABS: HDL CHOLESTEROL 101 mg/dL (40-60)
[2020-05-05] MEDS: GABAPENTIN 300 MG CAPSULE PO SCH ×2 (13:15→21:28)
[2020-05-05] MEDS: MELATONIN 5 MG TABLETS PO SCH (21:28)
[2020-05-05] MEDS: traZODone HCL 50 MG TABLET (FP) PO SCH (21:28)
[2020-05-05] MEDS: METOPROLOL TARTRATE 25 MG TABLET (FP) PO SCH (21:28)
[2020-05-05] MEDS: THIAMINE HCL 100 MG TABLET (FP) PO SCH (21:28)
[2020-05-06] MEDS: GABAPENTIN 300 MG CAPSULE PO SCH ×3 (06:54→21:18)
[2020-05-06] MEDS ORDERED: PT OWN MED DRAWER 7, Y5N ONE (08:46)
[2020-05-06] MEDS: PANTOPRAZOLE 40 MG TABLET PO SCH (09:57)
[2020-05-06] MEDS: CALCIUM 500MG/VIT-D 200 UNITS COMBO TABLET (FP) PO SCH (09:57)
[2020-05-06] MEDS: IRON POLYSACCHARIDES 150 MG CAPSULE PO SCH (09:57)
[2020-05-06] MEDS: FLUoxetine HCL 20 MG CAPSULE PO SCH (09:58)
[2020-05-06] MEDS: CYANOCOBALAMIN 1,000 MCG TABLET (FP) PO SCH (09:58)
[2020-05-06] MEDS: FAMOTIDINE 20 MG TABLET PO SCH (09:59)
[2020-05-06] MEDS: METOPROLOL TARTRATE 25 MG TABLET (FP) PO SCH ×2 (09:59→21:18)
[2020-05-06] MEDS: PRENATAL VITAMINS W/ FOLIC ACID TABLET (FP) PO SCH (09:59)
[2020-05-06] MEDS: NICOTINE 7 MG/24 HOURS TOPICAL PATCH TD SCH (10:00)
[2020-05-06] MEDS ORDERED: NIFEdipine 10 MG CAPSULE (FP) PO SCH (14:00)
[2020-05-06] MEDS: traZODone HCL 50 MG TABLET (FP) PO SCH (21:18)
[2020-05-06] MEDS: MELATONIN 5 MG TABLETS PO SCH (21:18)
[2020-05-06] MEDS: THIAMINE HCL 100 MG TABLET (FP) PO SCH (21:18)
[2020-05-07] MEDS: GABAPENTIN 300 MG CAPSULE PO SCH ×3 (06:41→21:33)
[2020-05-07] MEDS ORDERED: PT OWN MED DRAWER 7, Y5N ONE (08:48)
[2020-05-07] MEDS: CYANOCOBALAMIN 1,000 MCG TABLET (FP) PO SCH (10:04)
[2020-05-07] MEDS: IRON POLYSACCHARIDES 150 MG CAPSULE PO SCH (10:04)
[2020-05-07] MEDS: METOPROLOL TARTRATE 25 MG TABLET (FP) PO SCH ×2 (10:04→21:33)
[2020-05-07] MEDS: PANTOPRAZOLE 40 MG TABLET PO SCH (10:04)
[2020-05-07] MEDS: FLUoxetine HCL 20 MG CAPSULE PO SCH (10:05)
[2020-05-07] MEDS: CALCIUM 500MG/VIT-D 200 UNITS COMBO TABLET (FP) PO SCH (10:05)
[2020-05-07] MEDS: PRENATAL VITAMINS W/ FOLIC ACID TABLET (FP) PO SCH (10:05)
[2020-05-07] MEDS: FAMOTIDINE 20 MG TABLET PO SCH (10:07)
[2020-05-07] MEDS: NICOTINE 7 MG/24 HOURS TOPICAL PATCH TD SCH (10:07)
[2020-05-07] MEDS: NIFEdipine E.R. 30 MG TABLET PO SCH (10:58)
--- NOTE | 2020-05-07 13:09 | PN ---
S Progress Note Note: PATIENT SEEN FOR F/U LABS. Laboratory Tests 04/30/20 05/05/20 10:49 08:00 POC Glucometer 93 Triglycerides 76 Cholesterol 246 H Total LDL Cholesterol 114 H HDL Cholesterol 101 H Vital Signs Temperature 97.6 F 05/07/20 06:37 Pulse Rate 85 05/07/20 08:44 Respiratory Rate 18 05/07/20 08:44 Blood Pressure 148/85 05/07/20 08:44 O2 Sat by Pulse Oximetry (%) 98 05/07/20 06:37 ROS: DENIES CHEST PAIN, COUGH, SOB AND DIZZINESS PE ALERT AND ORIENTED X 3 SKIN WARM AND DRY NECK SUPPLE, NO JVD EXT FULL ROM, AMB AD NADER NO TREMORS A/P: HLD LABS APPRECIATED WILL START ATORVASTATIN 10MG HS PATIENT EDUCATED ON LOW CHOL/FAT DIET AND MEDICALLY ADVISED TO FOLLOW UP WITH PCP TO CONTINUE MANAGEMENT OF CHOLESTEROL AND HTN ONCE DISCHARGE. PATIENT VERBALIZED UNDERSTANDING OF ALL INFORMATION PROVIDED.
[2020-05-07] MEDS: THIAMINE HCL 100 MG TABLET (FP) PO SCH (21:33)
[2020-05-07] MEDS: traZODone HCL 50 MG TABLET (FP) PO SCH (21:33)
[2020-05-07] MEDS: ATORVASTATIN CA 10 MG TABLET (FP) PO SCH (21:34)
[2020-05-07] MEDS: MELATONIN 5 MG TABLETS PO SCH (21:34)
[2020-05-08] MEDS: GABAPENTIN 300 MG CAPSULE PO SCH ×3 (07:32→21:21)
[2020-05-08] MEDS: FLUoxetine HCL 20 MG CAPSULE PO SCH (10:13)
[2020-05-08] MEDS: CALCIUM 500MG/VIT-D 200 UNITS COMBO TABLET (FP) PO SCH (10:14)
[2020-05-08] MEDS: METOPROLOL TARTRATE 25 MG TABLET (FP) PO SCH ×2 (10:14→21:21)
[2020-05-08] MEDS: PANTOPRAZOLE 40 MG TABLET PO SCH (10:14)
[2020-05-08] MEDS: NIFEdipine E.R. 30 MG TABLET PO SCH (10:14)
[2020-05-08] MEDS: PRENATAL VITAMINS W/ FOLIC ACID TABLET (FP) PO SCH (10:14)
[2020-05-08] MEDS: NICOTINE 7 MG/24 HOURS TOPICAL PATCH TD SCH (10:14)
[2020-05-08] MEDS: IRON POLYSACCHARIDES 150 MG CAPSULE PO SCH (10:15)
[2020-05-08] MEDS: CYANOCOBALAMIN 1,000 MCG TABLET (FP) PO SCH (10:15)
[2020-05-08] MEDS ORDERED: PT OWN MED DRAWER 7, Y5N ONE (10:15)
[2020-05-08] MEDS: THIAMINE HCL 100 MG TABLET (FP) PO SCH (21:21)
[2020-05-08] MEDS: ATORVASTATIN CA 10 MG TABLET (FP) PO SCH (21:21)
[2020-05-08] MEDS: traZODone HCL 50 MG TABLET (FP) PO SCH (21:21)
[2020-05-08] MEDS: MELATONIN 5 MG TABLETS PO SCH (21:21)
[2020-05-09] MEDS: GABAPENTIN 300 MG CAPSULE PO SCH ×3 (06:39→21:22)
[2020-05-09] MEDS: METOPROLOL TARTRATE 25 MG TABLET (FP) PO SCH ×2 (09:43→21:22)
[2020-05-09] MEDS: CYANOCOBALAMIN 1,000 MCG TABLET (FP) PO SCH (09:43)
[2020-05-09] MEDS: CALCIUM 500MG/VIT-D 200 UNITS COMBO TABLET (FP) PO SCH (09:43)
[2020-05-09] MEDS: IRON POLYSACCHARIDES 150 MG CAPSULE PO SCH (09:43)
[2020-05-09] MEDS: NIFEdipine E.R. 30 MG TABLET PO SCH (09:43)
[2020-05-09] MEDS: FLUoxetine HCL 20 MG CAPSULE PO SCH (09:43)
[2020-05-09] MEDS: PRENATAL VITAMINS W/ FOLIC ACID TABLET (FP) PO SCH (09:43)
[2020-05-09] MEDS: PANTOPRAZOLE 40 MG TABLET PO SCH (09:44)
[2020-05-09] MEDS: NICOTINE 7 MG/24 HOURS TOPICAL PATCH TD SCH (09:44)
[2020-05-09] MEDS: MELATONIN 5 MG TABLETS PO SCH (21:22)
[2020-05-09] MEDS: THIAMINE HCL 100 MG TABLET (FP) PO SCH (21:22)
[2020-05-09] MEDS: ATORVASTATIN CA 10 MG TABLET (FP) PO SCH (21:22)
[2020-05-09] MEDS: traZODone HCL 50 MG TABLET (FP) PO SCH (21:22)
[2020-05-10] MEDS: GABAPENTIN 300 MG CAPSULE PO SCH ×3 (06:24→21:16)
[2020-05-10] MEDS ORDERED: PT OWN MED DRAWER 7, Y5N ONE (08:59)
[2020-05-10] MEDS: IRON POLYSACCHARIDES 150 MG CAPSULE PO SCH (10:31)
[2020-05-10] MEDS: FLUoxetine HCL 20 MG CAPSULE PO SCH (10:31)
[2020-05-10] MEDS: PRENATAL VITAMINS W/ FOLIC ACID TABLET (FP) PO SCH (10:31)
[2020-05-10] MEDS: METOPROLOL TARTRATE 25 MG TABLET (FP) PO SCH ×2 (10:31→21:16)
[2020-05-10] MEDS: CALCIUM 500MG/VIT-D 200 UNITS COMBO TABLET (FP) PO SCH (10:32)
[2020-05-10] MEDS: PANTOPRAZOLE 40 MG TABLET PO SCH (10:33)
[2020-05-10] MEDS: NIFEdipine E.R. 30 MG TABLET PO SCH (10:33)
[2020-05-10] MEDS: CYANOCOBALAMIN 1,000 MCG TABLET (FP) PO SCH (10:33)
[2020-05-10] MEDS: NICOTINE 7 MG/24 HOURS TOPICAL PATCH TD SCH (10:35)
[2020-05-10] MEDS: traZODone HCL 50 MG TABLET (FP) PO SCH (21:16)
[2020-05-10] MEDS: ATORVASTATIN CA 10 MG TABLET (FP) PO SCH (21:16)
[2020-05-10] MEDS: MELATONIN 5 MG TABLETS PO SCH (21:16)
[2020-05-10] MEDS: THIAMINE HCL 100 MG TABLET (FP) PO SCH (21:16)
[2020-05-11] MEDS: GABAPENTIN 300 MG CAPSULE PO SCH ×3 (06:30→21:22)
[2020-05-11] MEDS ORDERED: PT OWN MED DRAWER 7, Y5N ONE ×2 (09:00→09:01)
[2020-05-11] MEDS: PANTOPRAZOLE 40 MG TABLET PO SCH (10:15)
[2020-05-11] MEDS: PRENATAL VITAMINS W/ FOLIC ACID TABLET (FP) PO SCH (10:15)
[2020-05-11] MEDS: METOPROLOL TARTRATE 25 MG TABLET (FP) PO SCH ×2 (10:15→21:22)
[2020-05-11] MEDS: FLUoxetine HCL 20 MG CAPSULE PO SCH (10:15)
[2020-05-11] MEDS: CALCIUM 500MG/VIT-D 200 UNITS COMBO TABLET (FP) PO SCH (10:15)
[2020-05-11] MEDS: CYANOCOBALAMIN 1,000 MCG TABLET (FP) PO SCH (10:16)
[2020-05-11] MEDS: IRON POLYSACCHARIDES 150 MG CAPSULE PO SCH (10:16)
[2020-05-11] MEDS: NIFEdipine E.R. 30 MG TABLET PO SCH (10:16)
[2020-05-11] MEDS: NICOTINE 7 MG/24 HOURS TOPICAL PATCH TD SCH (10:16)
--- NOTE | 2020-05-11 10:30 | PN ---
S Progress Note Note: Wants to re-start Vivitrol. Pt had been on Vivitrol at [facility], but stopped with COVID-19 epidemic. Wants to re-start. Discussed with patient. She does not know her exact discharge date and is working towards have 28 days. I need to schedule the Vivitrol so that the patient has sufficient time upon discharge to schedule her next monthly dose. Will discuss with counselor. Vital Signs Period Temp Pulse Resp BP Sys/Braxton Pulse Ox Last 24 Hr 96.9 F-97.1 F 63-76 18 131-146/90-99 95-97
[2020-05-11] MEDS: MELATONIN 5 MG TABLETS PO SCH (21:22)
[2020-05-11] MEDS: THIAMINE HCL 100 MG TABLET (FP) PO SCH (21:22)
[2020-05-11] MEDS: traZODone HCL 50 MG TABLET (FP) PO SCH (21:22)
[2020-05-11] MEDS: ATORVASTATIN CA 10 MG TABLET (FP) PO SCH (21:22)
[2020-05-12] MEDS: GABAPENTIN 300 MG CAPSULE PO SCH ×3 (06:34→21:22)
[2020-05-12] MEDS: PRENATAL VITAMINS W/ FOLIC ACID TABLET (FP) PO SCH (10:01)
[2020-05-12] MEDS: FLUoxetine HCL 20 MG CAPSULE PO SCH (10:01)
[2020-05-12] MEDS: PANTOPRAZOLE 40 MG TABLET PO SCH (10:01)
[2020-05-12] MEDS: NICOTINE 7 MG/24 HOURS TOPICAL PATCH TD SCH (10:01)
[2020-05-12] MEDS: CALCIUM 500MG/VIT-D 200 UNITS COMBO TABLET (FP) PO SCH (10:01)
[2020-05-12] MEDS: METOPROLOL TARTRATE 25 MG TABLET (FP) PO SCH ×2 (10:01→21:22)
[2020-05-12] MEDS: IRON POLYSACCHARIDES 150 MG CAPSULE PO SCH (10:01)
[2020-05-12] MEDS: NIFEdipine E.R. 30 MG TABLET PO SCH (10:01)
[2020-05-12] MEDS: CYANOCOBALAMIN 1,000 MCG TABLET (FP) PO SCH (10:01)
[2020-05-12] MEDS: traZODone HCL 50 MG TABLET (FP) PO SCH (21:22)
[2020-05-12] MEDS: ATORVASTATIN CA 10 MG TABLET (FP) PO SCH (21:22)
[2020-05-12] MEDS: THIAMINE HCL 100 MG TABLET (FP) PO SCH (21:22)
[2020-05-12] MEDS: MELATONIN 5 MG TABLETS PO SCH (21:22)
[2020-05-13] MEDS: GABAPENTIN 300 MG CAPSULE PO SCH ×3 (06:18→21:18)
[2020-05-13] MEDS ORDERED: PT OWN MED DRAWER 7, Y5N ONE (08:42)
[2020-05-13] MEDS: FLUoxetine HCL 20 MG CAPSULE PO SCH (10:15)
[2020-05-13] MEDS: CALCIUM 500MG/VIT-D 200 UNITS COMBO TABLET (FP) PO SCH (10:15)
[2020-05-13] MEDS: NALTREXONE HCL 50 MG TABLET PO SCH (10:15)
[2020-05-13] MEDS: PANTOPRAZOLE 40 MG TABLET PO SCH (10:15)
[2020-05-13] MEDS: METOPROLOL TARTRATE 25 MG TABLET (FP) PO SCH ×2 (10:15→21:18)
[2020-05-13] MEDS: PRENATAL VITAMINS W/ FOLIC ACID TABLET (FP) PO SCH (10:15)
[2020-05-13] MEDS: CYANOCOBALAMIN 1,000 MCG TABLET (FP) PO SCH (10:15)
[2020-05-13] MEDS: NICOTINE 7 MG/24 HOURS TOPICAL PATCH TD SCH (10:15)
[2020-05-13] MEDS: NIFEdipine E.R. 30 MG TABLET PO SCH (10:16)
[2020-05-13] MEDS: IRON POLYSACCHARIDES 150 MG CAPSULE PO SCH (10:16)
[2020-05-13] MEDS: THIAMINE HCL 100 MG TABLET (FP) PO SCH (21:18)
[2020-05-13] MEDS: traZODone HCL 50 MG TABLET (FP) PO SCH (21:18)
[2020-05-13] MEDS: ATORVASTATIN CA 10 MG TABLET (FP) PO SCH (21:18)
[2020-05-13] MEDS: MELATONIN 5 MG TABLETS PO SCH (21:18)
[2020-05-14] MEDS: GABAPENTIN 300 MG CAPSULE PO SCH ×3 (06:08→21:40)
[2020-05-14] MEDS ORDERED: PT OWN MED DRAWER 7, Y5N ONE (09:01)
[2020-05-14] MEDS: PRENATAL VITAMINS W/ FOLIC ACID TABLET (FP) PO SCH (09:59)
[2020-05-14] MEDS: NIFEdipine E.R. 30 MG TABLET PO SCH (09:59)
[2020-05-14] MEDS: IRON POLYSACCHARIDES 150 MG CAPSULE PO SCH (10:00)
[2020-05-14] MEDS: CYANOCOBALAMIN 1,000 MCG TABLET (FP) PO SCH (10:00)
[2020-05-14] MEDS: CALCIUM 500MG/VIT-D 200 UNITS COMBO TABLET (FP) PO SCH (10:00)
[2020-05-14] MEDS: METOPROLOL TARTRATE 25 MG TABLET (FP) PO SCH ×2 (10:00→21:40)
[2020-05-14] MEDS: FLUoxetine HCL 20 MG CAPSULE PO SCH (10:00)
[2020-05-14] MEDS: NALTREXONE HCL 50 MG TABLET PO SCH (10:00)
[2020-05-14] MEDS: PANTOPRAZOLE 40 MG TABLET PO SCH (10:00)
[2020-05-14] MEDS: NICOTINE 7 MG/24 HOURS TOPICAL PATCH TD SCH (10:02)
[2020-05-14] MEDS: ACETAMINOPHEN 325 MG TABLET (FP) PO PRN (13:56)
[2020-05-14] MEDS: traZODone HCL 50 MG TABLET (FP) PO SCH (21:40)
[2020-05-14] MEDS: THIAMINE HCL 100 MG TABLET (FP) PO SCH (21:40)
[2020-05-14] MEDS: MELATONIN 5 MG TABLETS PO SCH (21:40)
[2020-05-14] MEDS: ATORVASTATIN CA 10 MG TABLET (FP) PO SCH (21:40)
[2020-05-15] MEDS: GABAPENTIN 300 MG CAPSULE PO SCH ×3 (06:24→21:34)
[2020-05-15] MEDS: ACETAMINOPHEN 325 MG TABLET (FP) PO PRN (06:25)
[2020-05-15] MEDS ORDERED: PT OWN MED DRAWER 7, Y5N ONE (08:51)
[2020-05-15] MEDS: CALCIUM 500MG/VIT-D 200 UNITS COMBO TABLET (FP) PO SCH (09:49)
[2020-05-15] MEDS: PRENATAL VITAMINS W/ FOLIC ACID TABLET (FP) PO SCH (09:49)
[2020-05-15] MEDS: CYANOCOBALAMIN 1,000 MCG TABLET (FP) PO SCH (09:49)
[2020-05-15] MEDS: METOPROLOL TARTRATE 25 MG TABLET (FP) PO SCH ×2 (09:49→21:34)
[2020-05-15] MEDS: FLUoxetine HCL 20 MG CAPSULE PO SCH (09:49)
[2020-05-15] MEDS: PANTOPRAZOLE 40 MG TABLET PO SCH (09:49)
[2020-05-15] MEDS: NALTREXONE HCL 50 MG TABLET PO SCH (09:50)
[2020-05-15] MEDS: IRON POLYSACCHARIDES 150 MG CAPSULE PO SCH (09:50)
[2020-05-15] MEDS: NIFEdipine E.R. 30 MG TABLET PO SCH (09:50)
[2020-05-15] MEDS: NICOTINE 7 MG/24 HOURS TOPICAL PATCH TD SCH (09:50)
[2020-05-15] MEDS: THIAMINE HCL 100 MG TABLET (FP) PO SCH (21:34)
[2020-05-15] MEDS: MELATONIN 5 MG TABLETS PO SCH (21:34)
[2020-05-15] MEDS: traZODone HCL 50 MG TABLET (FP) PO SCH (21:35)
[2020-05-15] MEDS: ATORVASTATIN CA 10 MG TABLET (FP) PO SCH (21:35)
[2020-05-16] MEDS: GABAPENTIN 300 MG CAPSULE PO SCH ×3 (06:21→21:29)
[2020-05-16] MEDS: FLUoxetine HCL 20 MG CAPSULE PO SCH (10:12)
[2020-05-16] MEDS: CALCIUM 500MG/VIT-D 200 UNITS COMBO TABLET (FP) PO SCH (10:12)
[2020-05-16] MEDS: IRON POLYSACCHARIDES 150 MG CAPSULE PO SCH (10:12)
[2020-05-16] MEDS: PANTOPRAZOLE 40 MG TABLET PO SCH (10:12)
[2020-05-16] MEDS: PRENATAL VITAMINS W/ FOLIC ACID TABLET (FP) PO SCH (10:12)
[2020-05-16] MEDS: NIFEdipine E.R. 30 MG TABLET PO SCH (10:12)
[2020-05-16] MEDS: METOPROLOL TARTRATE 25 MG TABLET (FP) PO SCH ×2 (10:12→21:29)
[2020-05-16] MEDS: NICOTINE 7 MG/24 HOURS TOPICAL PATCH TD SCH (10:12)
[2020-05-16] MEDS: NALTREXONE HCL 50 MG TABLET PO SCH (10:12)
[2020-05-16] MEDS: CYANOCOBALAMIN 1,000 MCG TABLET (FP) PO SCH (10:13)
[2020-05-16] MEDS: traZODone HCL 50 MG TABLET (FP) PO SCH (21:29)
[2020-05-16] MEDS: ATORVASTATIN CA 10 MG TABLET (FP) PO SCH (21:29)
[2020-05-16] MEDS: MELATONIN 5 MG TABLETS PO SCH (21:29)
[2020-05-16] MEDS: THIAMINE HCL 100 MG TABLET (FP) PO SCH (21:29)
[2020-05-17] MEDS: ACETAMINOPHEN 325 MG TABLET (FP) PO PRN (06:40)
[2020-05-17] MEDS: GABAPENTIN 300 MG CAPSULE PO SCH ×3 (06:40→21:52)
[2020-05-17] MEDS ORDERED: PT OWN MED DRAWER 7, Y5N ONE (08:59)
[2020-05-17] MEDS: NALTREXONE HCL 50 MG TABLET PO SCH (10:48)
[2020-05-17] MEDS: FLUoxetine HCL 20 MG CAPSULE PO SCH (10:48)
[2020-05-17] MEDS: PRENATAL VITAMINS W/ FOLIC ACID TABLET (FP) PO SCH (10:48)
[2020-05-17] MEDS: NICOTINE 7 MG/24 HOURS TOPICAL PATCH TD SCH (10:49)
[2020-05-17] MEDS: METOPROLOL TARTRATE 25 MG TABLET (FP) PO SCH ×2 (10:49→21:52)
[2020-05-17] MEDS: IRON POLYSACCHARIDES 150 MG CAPSULE PO SCH (10:49)
[2020-05-17] MEDS: PANTOPRAZOLE 40 MG TABLET PO SCH (10:49)
[2020-05-17] MEDS: NIFEdipine E.R. 30 MG TABLET PO SCH (10:49)
[2020-05-17] MEDS: CALCIUM 500MG/VIT-D 200 UNITS COMBO TABLET (FP) PO SCH (10:49)
[2020-05-17] MEDS: CYANOCOBALAMIN 1,000 MCG TABLET (FP) PO SCH (10:49)
[2020-05-17] MEDS: ATORVASTATIN CA 10 MG TABLET (FP) PO SCH (21:52)
[2020-05-17] MEDS: traZODone HCL 50 MG TABLET (FP) PO SCH (21:52)
[2020-05-17] MEDS: THIAMINE HCL 100 MG TABLET (FP) PO SCH (21:52)
[2020-05-17] MEDS: MELATONIN 5 MG TABLETS PO SCH (21:53)
[2020-05-18] MEDS: GABAPENTIN 300 MG CAPSULE PO SCH ×3 (06:37→21:31)
--- NOTE | 2020-05-18 08:28 | PN ---
[facility] Progress Note Note: Patient is scheduled for discharge tomorrow. Scripts for 30 days supply of medications(Prozac 40 mg/day, Trazadone 50 mg/hs)will be electronically transmitted to [facility], [address] [place] [id number]
[2020-05-18] MEDS: NIFEdipine E.R. 30 MG TABLET PO SCH (10:00)
[2020-05-18] MEDS: PRENATAL VITAMINS W/ FOLIC ACID TABLET (FP) PO SCH (10:00)
[2020-05-18] MEDS: FLUoxetine HCL 20 MG CAPSULE PO SCH (10:00)
[2020-05-18] MEDS: NICOTINE 7 MG/24 HOURS TOPICAL PATCH TD SCH (10:00)
[2020-05-18] MEDS: IRON POLYSACCHARIDES 150 MG CAPSULE PO SCH (10:00)
[2020-05-18] MEDS: PANTOPRAZOLE 40 MG TABLET PO SCH (10:00)
[2020-05-18] MEDS ORDERED: NALTREXONE MICROSPHERES (VIVITROL) 380 MG DISP.SYRIN IM ONE (10:00)
[2020-05-18] MEDS: METOPROLOL TARTRATE 25 MG TABLET (FP) PO SCH ×2 (10:00→21:31)
[2020-05-18] MEDS: CALCIUM 500MG/VIT-D 200 UNITS COMBO TABLET (FP) PO SCH (10:00)
[2020-05-18] MEDS: CYANOCOBALAMIN 1,000 MCG TABLET (FP) PO SCH (10:01)
[2020-05-18] MEDS: ACETAMINOPHEN 325 MG TABLET (FP) PO PRN (13:55)
[2020-05-18] MEDS: MELATONIN 5 MG TABLETS PO SCH (21:31)
[2020-05-18] MEDS: ATORVASTATIN CA 10 MG TABLET (FP) PO SCH (21:31)
[2020-05-18] MEDS: traZODone HCL 50 MG TABLET (FP) PO SCH (21:31)
[2020-05-18] MEDS: THIAMINE HCL 100 MG TABLET (FP) PO SCH (21:31)
[2020-05-19] MEDS: GABAPENTIN 300 MG CAPSULE PO SCH (06:43)
[2020-05-19 07:09] VITALS: TEMP 98.4
[2020-05-19] MEDS: CYANOCOBALAMIN 1,000 MCG TABLET (FP) PO SCH (09:02)
[2020-05-19] MEDS: NIFEdipine E.R. 30 MG TABLET PO SCH (09:02)
[2020-05-19] MEDS: PANTOPRAZOLE 40 MG TABLET PO SCH (09:02)
[2020-05-19] MEDS: IRON POLYSACCHARIDES 150 MG CAPSULE PO SCH (09:02)
[2020-05-19] MEDS: CALCIUM 500MG/VIT-D 200 UNITS COMBO TABLET (FP) PO SCH (09:02)
[2020-05-19] MEDS: PRENATAL VITAMINS W/ FOLIC ACID TABLET (FP) PO SCH (09:03)
[2020-05-19] MEDS: NICOTINE 7 MG/24 HOURS TOPICAL PATCH TD SCH (09:03)
[2020-05-19] MEDS: FLUoxetine HCL 20 MG CAPSULE PO SCH (09:03)
[2020-05-19] MEDS: METOPROLOL TARTRATE 25 MG TABLET (FP) PO SCH (09:03)
--- NOTE | 2020-05-19 09:11 | DS ---
[facility] Rehab Discharge Summary - [facility] Rehab Discharge Summary Admission Date: 04/28/20 Discharge Date: 05/19/20 - History Present History: Alcohol dependence Pertinent Past History: Patient is a 49 y/o with alcohol use disorder. Patient endorses she consumes 8 glasses of vodka/whiskey daily. Last drink was 5:30 am today. Age of first use 16. Patient states she does require an eye transport analyst and that she has blacked out multiple times in the past from drinking. PMH: Depression (Fluoxetine, Trazadone), HTN, Hearing loss (acoustic schwannoma), osteoarthritis b/l knees Social Hx- Unemployed. Remote history of crack use- January of this year. SurgHx- Gastric Sleeve ([facility]) FH- Father Alcoholism, Leukemia. Mother Healthy. 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 She was adherent to her medication regimen and treatment plan. She had no acute medical problems while in rehab. She was started on Vivitrol while in rehab and tolerated the induction well. - Medication Discharge Medications: Ambulatory Orders Calcium Carbonate/Vitamin D3 [Calcium 500-Vit D3 400 Tablet] 1 tab PO DAILY 04/23/20 Cyanocobalamin [Vitamin B12 -] 500 mcg PO DAILY 04/23/20 Gabapentin 300 mg PO TID 04/23/20 Iron Polysaccharide Complex [Ferric X-150] 150 mg PO DAILY 04/23/20 Metoprolol Tartrate 25 mg PO BID 04/23/20 Multivitamins [Multivit ([facility] Formulary)] 1 tab PO DAILY 04/23/20 Atorvastatin Ca [Lipitor] 10 mg PO HS #30 tablet MDD 1 05/18/20 Omeprazole 20 mg PO DAILY #30 mg MDD 1 05/18/20 Fluoxetine HCl [Prozac] 40 mg PO DAILY #30 cap 05/19/20 traZODone HCL [Trazodone HCl] 50 mg PO HS #30 tablet 05/19/20 - Medication-Assisted Treatment (MAT) Medication-Assisted Treatment (MAT): Yes Medication Prescribed: Vivitrol (inj) MAT Follow-up Referral: Patient will go to [facility] to continue her Vivitrol Treatment. - Discharge Instructions Diet, activity, other medical instructions: Diet: Activity: Other medical instructions: - Diagnosis (1) Alcohol dependence Current Visit: Yes Status: Chronic - Follow-up Referral Minutes to complete discharge: 15 - AMA Did Patient Leave Against Medical Advice: No
[2020-05-19 09:49] VITALS: BP 142/86; PULSE 71
== END 2020-05-19 09:24 | disposition home or self-care (01) | DRG 772 ==
LOC: YASAS 11:55 → Y3W 11:57
PROVIDERS: ADMIT Allergy & Immunology; ATTEND Allergy & Immunology
PROC: HZ42ZZZ Group Counseling for Substance Abuse Treatment, Cognitive-Behavioral (ICD-10-PCS; principal; 2020-04-28)
DX: F10.20 Alcohol dependence, uncomplicated (principal); F14.21 Cocaine dependence, in remission; F10.24 Alcohol dependence with alcohol-induced mood disorder; F10.282 Alcohol dependence with alcohol-induced sleep disorder; F32.9 Major depressive disorder, single episode, unspecified; I10 Essential (primary) hypertension; I48.20 Chronic atrial fibrillation, unspecified; E78.5 Hyperlipidemia, unspecified; H91.93 Unspecified hearing loss, bilateral; D33.3 Benign neoplasm of cranial nerves; M17.0 Bilateral primary osteoarthritis of knee; Z91.410 Personal history of adult physical and sexual abuse; Z98.84 Bariatric surgery status; Z56.0 Unemployment, unspecified
CPT/HCPCS: 36415; 80061; 82962; 83721; 93005; 93010; J2315

== ENCOUNTER 2022-03-21 11:55 | Inpatient (IN) | payer BC, OTHER ==
[2022-03-21 14:27] VITALS: BMI 45.1
[2022-03-21] MEDS ORDERED: DICYCLOMINE HCL 10 MG CAPSULE PO PRN (14:59)
[2022-03-21] MEDS ORDERED: MAGNESIUM CITRATE 300 ML BOTTLE PO PRN (14:59)
[2022-03-21] MEDS ORDERED: ACETAMINOPHEN 325 MG TABLET (FP) PO PRN (14:59)
[2022-03-21] MEDS ORDERED: MAG HYDROX/AL HYDROX/SIMETH 30 ML UNIT-DOSE CUP PO PRN (14:59)
[2022-03-21] MEDS ORDERED: MAGNESIUM HYDROX 2400MG/30ML ORAL SUSPENSION 30 ML CUP PO PRN (14:59)
[2022-03-21] MEDS ORDERED: ONDANSETRON *ODT* 4 MG TABLET SL PRN (14:59)
[2022-03-21] MEDS ORDERED: IBUPROFEN 400 MG TABLET (FP) PO PRN (14:59)
[2022-03-21] MEDS ORDERED: BISMUTH SUBSALICYLATE 262 MG/15 ML BTL PO PRN (14:59)
[2022-03-21] MEDS ORDERED: LOPERAMIDE HCL 2 MG CAPSULE PO PRN (14:59)
[2022-03-21] MEDS ORDERED: BENZOCAINE/MENTHOL (CHLORASEPTIC ) LOZENGE MM PRN (14:59)
[2022-03-21] MEDS ORDERED: diazePAM 5 MG TABLET ONE (15:53)
[2022-03-21] MEDS: diazePAM 5 MG TABLET PO PRN (15:58)
[2022-03-21] MEDS: hydrOXYzine PAMOATE 25 MG CAPSULE (FP) PO SCH ×2 (17:29→22:33)
[2022-03-21] MEDS: PRENATAL VITAMINS W/ FOLIC ACID TABLET (FP) PO SCH (17:29)
[2022-03-21] MEDS: diazePAM 5 MG TABLET PO SCH ×2 (17:29→22:33)
[2022-03-21] MEDS: METOPROLOL TARTRATE 25 MG TABLET (FP) PO SCH (22:33)
[2022-03-21] MEDS: THIAMINE HCL 100 MG TABLET (FP) PO SCH (22:33)
[2022-03-21] MEDS: MELATONIN 5 MG TABLETS PO SCH (22:34)
[2022-03-21] MEDS: ACETAMINOPHEN 325 MG TABLET (FP) PO PRN (22:34)
[2022-03-22] MEDS: hydrOXYzine PAMOATE 25 MG CAPSULE (FP) PO SCH ×5 (05:57→22:31)
[2022-03-22] MEDS: diazePAM 5 MG TABLET PO SCH ×4 (05:57→22:31)
[2022-03-22] MEDS: METHOCARBAMOL 500 MG TABLET PO PRN (10:13)
[2022-03-22] MEDS: PRENATAL VITAMINS W/ FOLIC ACID TABLET (FP) PO SCH (10:13)
[2022-03-22] MEDS: METOPROLOL TARTRATE 25 MG TABLET (FP) PO SCH ×2 (10:14→22:31)
[2022-03-22] MEDS: PANTOPRAZOLE 20 MG TABLET PO SCH (10:14)
[2022-03-22] MEDS: FLUoxetine HCL 20 MG CAPSULE PO SCH (10:14)
[2022-03-22] MEDS: NIFEdipine E.R 60 MG TABLET PO SCH (11:04)
[2022-03-22 11:59] LABS: HEMATOCRIT 38.4 % (32.4-45.2); HEMOGLOBIN 12.3 GM/dL (10.7-15.3); MCH 27.5 pg (25.7-33.7); MEAN PLT VOLUME 11.1 fl (7.5-11.1); PLATELET COUNT 231 10^3/uL (134-434); RBC 4.46 M/mm3 (3.60-5.2); RDW 16.5 % (11.6-15.6); WHITE BLOOD COUNT 6.1 K/mm3 (4.0-10.0)
[2022-03-22 12:13] LABS: ALBUMIN 3.4 g/dl (3.4-5.0); BLOOD UREA NITROGEN 11.3 mg/dL (7-18)
[2022-03-22 12:16] LABS: BILIRUBIN,TOTAL 0.8 mg/dL (0.2-1); CREATININE 0.6 mg/dL (0.55-1.3)
[2022-03-22 12:17] LABS: TOT PROT 6.9 g/dl (6.4-8.2)
[2022-03-22 12:53] LABS: HIV INTERPRETATION NEGATIVE (NEGATIVE)
[2022-03-22] MEDS: ACETAMINOPHEN 325 MG TABLET (FP) PO PRN ×2 (14:41→22:32)
[2022-03-22] MEDS: IBUPROFEN 600 MG TABLET (FP) PO PRN (17:48)
[2022-03-22] MEDS: MELATONIN 5 MG TABLETS PO SCH (22:31)
[2022-03-22] MEDS: GABAPENTIN 300 MG CAPSULE PO SCH (22:31)
[2022-03-22] MEDS: traZODone HCL 100 MG TABLET (FP) PO SCH (22:31)
[2022-03-22] MEDS: THIAMINE HCL 100 MG TABLET (FP) PO SCH (22:31)
[2022-03-23] MEDS: diazePAM 5 MG TABLET PO SCH ×3 (06:33→22:26)
[2022-03-23] MEDS: GABAPENTIN 300 MG CAPSULE PO SCH ×3 (06:34→22:27)
[2022-03-23] MEDS: hydrOXYzine PAMOATE 25 MG CAPSULE (FP) PO SCH (06:34)
[2022-03-23] MEDS: PANTOPRAZOLE 20 MG TABLET PO SCH (10:06)
[2022-03-23] MEDS: NIFEdipine E.R 60 MG TABLET PO SCH (10:06)
[2022-03-23] MEDS: PRENATAL VITAMINS W/ FOLIC ACID TABLET (FP) PO SCH (10:06)
[2022-03-23] MEDS: METOPROLOL TARTRATE 25 MG TABLET (FP) PO SCH ×2 (10:06→22:27)
[2022-03-23] MEDS: METHOCARBAMOL 500 MG TABLET PO PRN (10:07)
[2022-03-23] MEDS: FLUoxetine HCL 20 MG CAPSULE PO SCH (10:07)
[2022-03-23] MEDS: DRONEDARONE HCL 400 MG TAB (FP) PO SCH ×2 (11:44→22:27)
[2022-03-23] MEDS: MELATONIN 5 MG TABLETS PO SCH (22:27)
[2022-03-23] MEDS: traZODone HCL 100 MG TABLET (FP) PO SCH (22:27)
[2022-03-23] MEDS: THIAMINE HCL 100 MG TABLET (FP) PO SCH (22:27)
[2022-03-23] MEDS: ACETAMINOPHEN 325 MG TABLET (FP) PO PRN (22:28)
[2022-03-24] MEDS: GABAPENTIN 300 MG CAPSULE PO SCH ×3 (06:03→22:13)
[2022-03-24] MEDS: diazePAM 5 MG TABLET PO SCH ×2 (06:03→17:41)
[2022-03-24] MEDS: PRENATAL VITAMINS W/ FOLIC ACID TABLET (FP) PO SCH (10:33)
[2022-03-24] MEDS: DRONEDARONE HCL 400 MG TAB (FP) PO SCH ×2 (10:33→22:14)
[2022-03-24] MEDS: METOPROLOL TARTRATE 25 MG TABLET (FP) PO SCH ×2 (10:34→22:13)
[2022-03-24] MEDS: NIFEdipine E.R 60 MG TABLET PO SCH (10:34)
[2022-03-24] MEDS: PANTOPRAZOLE 40 MG TABLET PO SCH (10:36)
[2022-03-24] MEDS: FLUoxetine HCL 20 MG CAPSULE PO SCH (10:36)
[2022-03-24] MEDS: diazePAM 5 MG TABLET PO PRN (10:37)
[2022-03-24] MEDS: ACETAMINOPHEN 325 MG TABLET (FP) PO PRN (17:42)
[2022-03-24] MEDS: traZODone HCL 100 MG TABLET (FP) PO SCH (22:13)
[2022-03-24] MEDS: MELATONIN 5 MG TABLETS PO SCH (22:13)
[2022-03-24] MEDS: THIAMINE HCL 100 MG TABLET (FP) PO SCH (22:13)
[2022-03-24] MEDS: IBUPROFEN 600 MG TABLET (FP) PO PRN (22:14)
[2022-03-25] MEDS ORDERED: diazePAM 5 MG TABLET PO ONE (06:00)
[2022-03-25] MEDS: GABAPENTIN 300 MG CAPSULE PO SCH (06:09)
[2022-03-25 08:44] VITALS: BP 146/90; PULSE 69; TEMP 98.3
[2022-03-25] MEDS: PANTOPRAZOLE 40 MG TABLET PO SCH (10:32)
[2022-03-25] MEDS: PRENATAL VITAMINS W/ FOLIC ACID TABLET (FP) PO SCH (10:32)
[2022-03-25] MEDS: DRONEDARONE HCL 400 MG TAB (FP) PO SCH (10:32)
[2022-03-25] MEDS: NIFEdipine E.R 60 MG TABLET PO SCH (10:32)
[2022-03-25] MEDS: FLUoxetine HCL 20 MG CAPSULE PO SCH (10:32)
[2022-03-25] MEDS: METOPROLOL TARTRATE 25 MG TABLET (FP) PO SCH (10:32)
== END 2022-03-25 12:58 | disposition home or self-care (01) | DRG 897 ==
LOC: YASAS 11:55 → Y3N 15:41
PROVIDERS: ADMIT Allergy & Immunology; ATTEND Surgery
PROC: HZ2ZZZZ Detoxification Services for Substance Abuse Treatment (ICD-10-PCS; principal; 2022-03-21)
DX: F10.230 Alcohol dependence with withdrawal, uncomplicated (principal); F14.20 Cocaine dependence, uncomplicated; F41.9 Anxiety disorder, unspecified; F32.A Depression, unspecified; I48.91 Unspecified atrial fibrillation; I10 Essential (primary) hypertension; M17.0 Bilateral primary osteoarthritis of knee; Z87.891 Personal history of nicotine dependence
CPT/HCPCS: 36415; 80053; 81025; 85027; 86780; 87389; 87811; 93005; 93010; C9803-CS; U0003; U0005